=== PATIENT | male | born 1980 | race Caucasian/White ===

== ENCOUNTER 2016-11-26 21:46 | Emergency (ER) | payer BC ==
[2016-11-26 21:58] VITALS: BP 146/99; PULSE 103; TEMP 99; BMI 26.4
--- NOTE | 2016-11-26 23:13 | PDOC ---
History of Present Illness - General History Source: Patient Exam Limitations: No Limitations - History of Present Illness Initial Comments: 11/26/16 23:34 The patient is a 36-year-old male, with no significant past medical history, who presents to the emergency department with flu-like symptoms for about 5 days. The present reports constant body aches for the past couple of days. He states he has had a slight fever. He reports episodes of vomiting, but none today. The patient states he has been able to keep down fluids. He reports taking motrin 3 hours ago, with relief of fever. He denies sore throat, chills, cough, headache, or dizziness. He denies diarrhea and constipation. He denies dysuria, frequency, urgency, or hematuria. The patient denies any recent travel. The patient denies any sick contacts. Allergies: None reported. Past Surgical History: Appendectomy Social History: Non-smoker. No history of ETOH or recreational drug use. PCP: Dr. Maine Lopez <Bing Jean-Baptiste - Last Filed: 11/27/16 00:30> <Ruth Best - Last Filed: 11/27/16 21:14> - General Chief Complaint: Cold Symptoms Stated Complaint: COLD SYMPTOMS Time Seen by Provider: 11/26/16 23:12 Past History <Bing Jean-Baptiste - Last Filed: 11/27/16 00:30> - Past Medical History Other medical history: Denies - Surgical History Appendectomy: Yes - Immunization History Immunization Up to Date: Yes - Psycho/Social/Smoking Cessation Hx Anxiety: Yes Suicidal Ideation: No Smoking History: Never smoked Have you smoked in the past 12 months: No Number of Cigarettes Smoked Daily: 0 Cigars Per Day: 0 Information on smoking cessation initiated: No Hx Alcohol Use: No Drug/Substance Use Hx: No <Ruth Best - Last Filed: 11/27/16 21:14> - Past Medical History Allergies/Adverse Reactions: Allergies Allergy/AdvReac Type Severity Reaction Status Date / Time No Known Allergies Allergy Verified 11/26/16 21:55 Home Medications: Ambulatory Orders NK [No Known Home Medication] 04/09/16 Review of Systems - Review of Systems Able to Perform ROS?: Yes Comments:: 11/26/16 23:34 GENERAL/CONSTITUTIONAL: +Fever. +Body aches. No chills.. HEAD, EYES, EARS, NOSE AND THROAT: No change in vision. No ear pain or discharge. No sore throat. CARDIOVASCULAR: No chest pain or shortness of breath. RESPIRATORY: No cough, wheezing, or hemoptysis. GASTROINTESTINAL: + Nausea, +vomiting. No diarrhea or constipation. GENITOURINARY: No dysuria, frequency, or change in urination. MUSCULOSKELETAL: No joint or muscle swelling or pain. No neck or back pain. SKIN: No rash NEUROLOGIC: No headache, vertigo, loss of consciousness, or change in strength/ sensation. ENDOCRINE: No increased thirst. No abnormal weight change. HEMATOLOGIC/LYMPHATIC: No anemia, easy bleeding, or history of blood clots. ALLERGIC/IMMUNOLOGIC: No hives or skin allergy. <Bing Jean-Baptiste - Last Filed: 11/27/16 00:30> *Physical Exam - Vital Signs Last Vital Signs Temp Pulse Resp BP Pulse Ox 99.0 F 103 H 16 146/99 99 11/26/16 21:55 11/26/16 21:55 11/26/16 21:55 11/26/16 21:55 11/26/16 21:55 - Physical Exam Comments: 11/26/16 23:34 GENERAL: Awake, alert, and fully oriented, in no acute distress. Warm to the touch. HEAD: No signs of trauma EYES: PERRLA, EOMI, sclera anicteric, conjunctiva clear ENT: Auricles normal inspection, hearing grossly normal, nares patent, oropharynx clear without exudates. Moist mucosa NECK: Normal ROM, supple, no lymphadenopathy, JVD, or masses LUNGS: Breath sounds equal, clear to auscultation bilaterally. No wheezes, and no crackles HEART: Regular rate and rhythm, normal S1 and S2, no murmurs, rubs or gallops ABDOMEN: Soft, nontender, normoactive bowel sounds. No guarding, no rebound. No masses EXTREMITIES: Normal range of motion, no edema. No clubbing or cyanosis. No cords, erythema, or tenderness NEUROLOGICAL: Cranial nerves II through XII grossly intact. Normal speech, normal gait SKIN: Warm, Dry, normal turgor, no rashes or lesions noted. <Bing Jean-Baptiste - Last Filed: 11/27/16 00:30> - Vital Signs Last Vital Signs Temp Pulse Resp BP Pulse Ox 99.0 F 103 H 16 146/99 99 11/26/16 21:55 11/26/16 21:55 11/26/16 21:55 11/26/16 21:55 11/26/16 21:55 <Ruth Best - Last Filed: 11/27/16 21:14> ED Treatment Course - RADIOLOGY Radiograph Interpretation: 11/27/16 00:30 EXAM: CXR INTERPRETED BY: Dr. Sanches REVIEWED BY: Dr. Best IMPRESSION: Unremarkable examination without evidence of acute lung disease. - Medications Given in the ED: ED Medications Discontinued Medications Generic Name Dose Route Start Last Admin Trade Name Freq PRN Reason Stop Dose Admin Acetaminophen 650 mg 11/26/16 23:18 11/26/16 23:25 Tylenol - PO 11/26/16 23:19 650 mg ONCE ONE Administration <Bing Jean-Baptiste - Last Filed: 11/27/16 00:30> Medical Decision Making - Medical Decision Making 11/27/16 21:13 Pt comes with cough and flu. CXR is normal, and as he has been suffering with this for 7 days, I did not screen for the flu, as I will not be treating with tamiflu. Pt is hydrated and he is able to eat and drink He has no other complaints. He will be treated with analgesics and antipyretics. <Ruth Best - Last Filed: 11/27/16 21:14> *DC/Admit/Observation/Transfer - Attestations Scribe Attestion: 11/26/16 23:35 Documentation prepared by Bing Jean-Baptiste, acting as medical voucher clerk for Ruth Best MD. <Bing Jean-Baptiste - Last Filed: 11/27/16 00:30> - Discharge Dispostion Admit: No <Ruth Best - Last Filed: 11/27/16 21:14> Diagnosis at time of Disposition: Viral syndrome - Discharge Dispostion Disposition: HOME Condition at time of disposition: Stable - Referrals Referrals: Maine Lopez MD [Primary Care Provider] - - Patient Instructions Printed Discharge Instructions: How to Avoid a Cold or Flu, DI for Acute Bronchitis - Post Discharge Activity Work/School Note: Back to Work
[2016-11-26] MEDS ORDERED: ACETAMINOPHEN 325 MG TABLET (FP) PO ONE (23:18)
[2016-11-26] MEDS ORDERED: ACETAMINOPHEN 325 MG TABLET (FP) ONE (23:22)
== END 2016-11-27 00:06 | disposition home or self-care (01) ==
LOC: JERFT 21:46 → JER 21:46
DX: B34.9 Viral infection, unspecified (principal)
CPT/HCPCS: 71020-TC; 99281-25

== ENCOUNTER 2017-11-02 18:41 | Emergency (ER) | payer BC ==
[2017-11-02] MEDS ORDERED: ACETAMINOPHEN 500 MG TABLET (FP) PO ONE (18:47)
--- NOTE | 2017-11-02 18:47 | PDOC ---
Rapid Medical Evaluation Time Seen by Provider: 11/02/17 18:45 Medical Evaluation: Allergies Allergy/AdvReac Type Severity Reaction Status Date / Time No Known Allergies Allergy Verified 11/26/16 21:55 11/02/17 18:46 I have performed a brief in person evaluation of this patient. The patient presents with chief complaint of : headache and congestion for 5 days cough for 3 weeks . no past medical history. Pertinent PE findings: nasal congestion, cough I have ordered the following: tylenol 975mg po The patient will proceed to the ER for further evaluation.
[2017-11-02 18:48] VITALS: BP 157/110; PULSE 97; TEMP 98.1; BMI 26.4
[2017-11-02] MEDS ORDERED: IBUPROFEN 600 MG TABLET (FP) PO ONE ×2 (21:35→21:51)
[2017-11-02] MEDS ORDERED: PSEUDOEPHEDRINE HCL 30 MG TABLET PO ONE (21:35)
--- NOTE | 2017-11-02 21:35 | PDOC ---
History of Present Illness - General History Source: Patient Exam Limitations: No Limitations - History of Present Illness Initial Comments: 11/02/17 21:42 The patient is a 36 year old male, with no significant past medical history, who presents to the emergency department with, 6 days of a headache and flu symptoms for 3 weeks. He reports his headache to be radiating from the back of his head to the neck. He reports the pain to worsen when he stands up. He reports chronic headaches occuring every month. He reports pressure on his ears. He reports taking Advil for his headache. He reports congestion and a cough. He reports a subjective fever which has resolved. He reports taking NyQuil and DayQuil, with minimal relief. He denies any recent fevers, chills, headache or dizziness. He denies any recent nausea, vomit, diarrhea or constipation. He denies any recent chest pain or shortness of breath. He denies any recent dysuria, frequency, urgency or hematuria. Allergies: NKA Past surgical history: None reported. Social History: Nonsmoker. Denies EtOH use and recreational drug use. <Preston Judd - Last Filed: 11/02/17 21:42> - General History Source: Patient Exam Limitations: No Limitations <Diya Zabala - Last Filed: 11/02/17 23:29> - General Chief Complaint: Headache Stated Complaint: HEADACHE Time Seen by Provider: 11/02/17 18:45 Past History <Preston Judd - Last Filed: 11/02/17 21:42> - Past Medical History COPD: No - Surgical History Appendectomy: Yes - Immunization History Immunization Up to Date: Yes - Suicide/Smoking/Psychosocial Hx Smoking History: Never smoked Have you smoked in the past 12 months: No Number of Cigarettes Smoked Daily: 0 Cigars Per Day: 0 Hx Alcohol Use: No Drug/Substance Use Hx: No Substance Use Type: None <Diya Zabala - Last Filed: 11/02/17 23:29> - Past Medical History Allergies/Adverse Reactions: Allergies Allergy/AdvReac Type Severity Reaction Status Date / Time No Known Allergies Allergy Verified 11/02/17 18:48 Home Medications: Ambulatory Orders Albuterol Sulfate Inhaler - [Ventolin HFA Inhaler -] 1 puff IH Q4H PRN #1 inhaler 11/02/17 Fluticasone Prop 0.05% Nasal [Flonase -] 1 spray NS DAILY #1 bot 11/02/17 Ibuprofen [Motrin -] 600 mg PO TID PRN #90 tablet MDD 3 11/02/17 Pseudoephedrine HCl 30 mg PO QID PRN #15 tablet 11/02/17 Review of Systems - Review of Systems Able to Perform ROS?: Yes Comments:: 11/02/17 21:42 GENERAL/CONSTITUTIONAL: +Subjective Fever (Resolved). No chills. No weakness. HEAD, EYES, EARS, NOSE AND THROAT: +Ear pain. No change in vision. No ear discharge. No sore throat. CARDIOVASCULAR: No chest pain or shortness of breath. RESPIRATORY: +Cough. +Conjestion. No wheezing, or hemoptysis. GASTROINTESTINAL: No nausea, vomiting, diarrhea or constipation. GENITOURINARY: No dysuria, frequency, or change in urination. MUSCULOSKELETAL: No joint or muscle swelling or pain. No neck or back pain. SKIN: No rash NEUROLOGIC: +Headache. No vertigo, loss of consciousness, or change in strength/ sensation. ENDOCRINE: No increased thirst. No abnormal weight change. HEMATOLOGIC/LYMPHATIC: No anemia, easy bleeding, or history of blood clots. ALLERGIC/IMMUNOLOGIC: No hives or skin allergy. All Other Systems: Reviewed and Negative <Preston Judd - Last Filed: 11/02/17 21:42> *Physical Exam - Vital Signs Last Vital Signs Temp Pulse Resp BP Pulse Ox 98.1 F 97 H 20 157/110 99 11/02/17 18:45 11/02/17 18:45 11/02/17 18:45 11/02/17 18:45 11/02/17 18:45 - Physical Exam Comments: 11/02/17 21:42 GENERAL: Awake, alert, and fully oriented, in no acute distress HEAD: No signs of trauma EYES: PERRLA, EOMI, sclera anicteric, conjunctiva clear ENT: +Bilateral nasal congestion. +Posterior pharynx cobblestoning. +TM occluded with wax. Auricles normal inspection. Moist mucosa NECK: Normal ROM, supple, no JVD, or masses LUNGS: Breath sounds equal, clear to auscultation bilaterally. No wheezes, and no crackles HEART: Regular rate and rhythm, normal S1 and S2, no murmurs, rubs or gallops ABDOMEN: Soft, nontender, normoactive bowel sounds. No guarding, no rebound. No masses EXTREMITIES: Normal range of motion, no edema. No clubbing or cyanosis. No cords, erythema, or tenderness NEUROLOGICAL: Alert and oriented x 3. Moves all extremities. Face is symmetric. SKIN: Warm, Dry, normal turgor, no rashes or lesions noted. <Preston Judd - Last Filed: 11/02/17 21:42> - Vital Signs Last Vital Signs Temp Pulse Resp BP Pulse Ox 98.1 F 97 H 20 157/110 99 11/02/17 18:45 11/02/17 18:45 11/02/17 18:45 11/02/17 18:45 11/02/17 18:45 <Diya Zabala - Last Filed: 11/02/17 23:29> ED Treatment Course - Medications Given in the ED: ED Medications Discontinued Medications Generic Name Dose Route Start Last Admin Trade Name Freq PRN Reason Stop Dose Admin Acetaminophen 1,000 mg 11/02/17 18:47 11/02/17 20:40 Tylenol - PO 11/02/17 18:48 1,000 mg ONCE ONE Administration <Preston Judd - Last Filed: 11/02/17 21:42> - Medications Given in the ED: ED Medications Discontinued Medications Generic Name Dose Route Start Last Admin Trade Name Freq PRN Reason Stop Dose Admin Acetaminophen 1,000 mg 11/02/17 18:47 11/02/17 20:40 Tylenol - PO 11/02/17 18:48 1,000 mg ONCE ONE Administration <Diya Zabala - Last Filed: 11/02/17 23:29> Medical Decision Making - Medical Decision Making 11/02/17 21:33 36-year-old male no known past medical history here today complaining of nasal congestion cough for 3 weeks and now complaining of a headache for 5 days. Patient states that he did have subjective fevers however did not measure at home headache is worse with standing up and bending over reports pressure-like sensation in his ears in his forehead no known sick contacts no travel no nausea no vomiting no focal weakness. Took some [id number] DayQuil and NyQuil with minimal relief no new weakness no rash On exam patient is awake alert has bilateral nasal congestion maxillary sinus tenderness left nasal turbinate was enlarged and inflamed. Pharynx is without exudates but has posterior cobblestoning. Neck no meningismus. Lungs are clear bilaterally heart is regular without any murmurs rubs or gallops abdomen is soft and nontender skin is warm and dry neuro: Awake alert oriented 3 moves all 4 extremities with good strength gait is normal Patient with sinusitis likely viral URI [place] [facility] triggers intermittent headache. We'll treat with anti-inflammatories, decongestants, Flonase we'll give outpatient follow-up for persistent symptoms with neurology 11/02/17 23:28 pt feeling improved followign meds. cxr negative. <Diya Zabala - Last Filed: 11/02/17 23:29> *DC/Admit/Observation/Transfer - Attestations Scribe Attestion: 11/02/17 21:43 Documentation prepared by Preston Judd, acting as biomedical electronics technician for Diya Zabala MD. <Preston Judd - Last Filed: 11/02/17 21:42> <Diya Zabala - Last Filed: 11/02/17 23:29> Diagnosis at time of Disposition: Sinusitis, Viral URI - Discharge Dispostion Disposition: HOME Condition at time of disposition: Improved - Prescriptions Prescriptions: Albuterol Sulfate Inhaler - [Ventolin HFA Inhaler -] 1 puff IH Q4H PRN #1 inhaler PRN Reason: cough Fluticasone Prop 0.05% Nasal [Flonase -] 1 spray NS DAILY #1 bot Ibuprofen [Motrin -] 600 mg PO TID PRN #90 tablet MDD 3 PRN Reason: Pain Pseudoephedrine HCl 30 mg PO QID PRN #15 tablet PRN Reason: Nasal Congestion - Referrals Referrals: Jake Sanchez MD [Staff Physician] - Chaparro Ingram MD [Staff Physician] - - Patient Instructions Printed Discharge Instructions: Sinus Headache, Common Cold Additional Instructions: you can use albuterol inhaled every 4 hours as needed for cough and wheezing. use 2 puffs. you should use pseudophed 30 mg every 6 hours for the next few days to help with nasal congestion. you can also use afrin nasal spray intranasally twice daily x 3 days. use flonase nasal spray daily to prevent allerigic rhinitis and help nasal pressure and swelling. you can take motrin 600 mg every 8 hours as needed for pain. follow up with neurology see referral for dr. Sanchez and call to schedule within two weeks for persistant headache. follow up with your primary doctor. if you do not have a primary doctor. you can follow up with dr. Chaparro Ingram. see referral information for phone numbers.
[2017-11-02] MEDS ORDERED: ALBUTEROL SO4 2.5/IPRATROPIUM 0.5 INH SOL 3 ML VIAL.NEB. NEB ONE (21:36)
[2017-11-02] MEDS ORDERED: PSEUDOEPHEDRINE HCL 60 MG TABLET ONE (21:51)
== END 2017-11-02 23:30 | disposition home or self-care (01) ==
LOC: JER 18:41
PROC: 3E0F7GC Introduction of Other Therapeutic Substance into Respiratory Tract, Via Natural or Artificial Opening (ICD-10-PCS; principal; 2017-11-02)
DX: J32.9 Chronic sinusitis, unspecified (principal); J06.9 Acute upper respiratory infection, unspecified
CPT/HCPCS: 71020-TC; 99281-25

== ENCOUNTER 2025-01-04 09:33 | Emergency (ER) | payer BC ==
[2025-01-04 09:40] VITALS: BP 134/95; PULSE 82; RESP 18; TEMP 98.3; BMI 27.1
[2025-01-04] MEDS ORDERED: ACETAMINOPHEN 500 MG TABLET (FP) ONE (10:26)
[2025-01-04] MEDS: ACETAMINOPHEN 500 MG TABLET (FP) PO ONE (10:27)
== END 2025-01-04 12:54 | disposition home or self-care (01) ==
LOC: JER 09:33
DX: S00.12XA Contusion of left eyelid and periocular area, initial encounter (principal); R22.0 Localized swelling, mass and lump, head; R51.9 Headache, unspecified; H53.8 Other visual disturbances; W50.0XXA Accidental hit or strike by another person, initial encounter; Y93.64 Activity, baseball
CPT/HCPCS: 70450-TC; 70486-TC; 99284-25